=== PATIENT | female | born 2000 | race Hispanic/Latino ===

== ENCOUNTER 2020-01-24 20:06 | Inpatient (IN) ==
[2020-01-24] MEDS ORDERED: REGLAN PO ONE (20:27)
[2020-01-24] MEDS ORDERED: PEPCID PO ONE (20:27)
[2020-01-24] MEDS ORDERED: PEPCID IV PRN (20:27)
[2020-01-24] MEDS ORDERED: BRETHINE SUBQ PRN (20:27)
[2020-01-24] MEDS ORDERED: ZOFRAN IV PRN (20:27)
[2020-01-24] MEDS ORDERED: STADOL IV PRN ×3 (20:27)
[2020-01-24] MEDS ORDERED: TYLENOL PO PRN (20:27)
[2020-01-24] MEDS ORDERED: PEPCID PO PRN (20:27)
[2020-01-24] MEDS ORDERED: AMBIEN PO PRN (20:27)
[2020-01-24] MEDS ORDERED: KEFZOL 1 GM/D5W 1 GM/50 ML IVPB IV PRN (20:27)
[2020-01-24 21:32] LABS: BASO# 0.05 X1000 (0.0-0.2); BASO% 0.7 % (0.0-0.8); EOS# 0.08 X1000 (0.0-0.7); EOS% 1.1 % (0.0-10.0); HEMATOCRIT 34.6 % (37.0-47.0); HEMOGLOBIN 11.5 g/dL (12.0-16.0); IMM GRAN# 0.05 X1000 (0.0-0.04); IMM GRAN% 0.7 % (0.0-0.5); LYMPH# 1.62 X1000 (1.2-3.4); LYMPH% 21.5 % (20.5-51.1); MCH 28.2 PG (27-31); MCHC 33.2 g/dL (33-37); MCV 84.8 FL (81-99); MONO# 0.56 X1000 (0.11-0.59); MONO% 7.4 % (1.7-9.3); NEUT# 5.17 X1000 (1.4-6.5); NEUT% 68.6 % (42.2-75.2); PLT 145 X1000 (130-400); RBC 4.08 XMIL (4.2-5.4); RDW 13.9 % (11.5-14.5); WBC 7.53 X1000 (4.8-10.8)
[2020-01-24] MEDS: CYTOTEC VAG SCH (22:00)
[2020-01-24] MEDS: LR 1,000 ML IV ONE (22:05)
--- NOTE | 2020-01-24 22:37 | HISTORY AND PHYSICAL ---
CHIEF COMPLAINT: Here for induction. HISTORY OF PRESENT ILLNESS: A 19-year-old G1 at 38 weeks and zero days with A2 gestational diabetes and gestational thrombocytopenia, presents to labor and delivery for medical induction of labor. Gestational diabetes has been controlled on metformin 1000 mg p.o. b.i.d. She has been followed by [facility] this and delivery was recommended at 38 to 39 weeks. She desired to proceed with induction today. She is feeling irregular contractions. She denies any bleeding or leaking fluid. She endorses movement. She has received regular care this . She was a transfer of care at 21 weeks to our clinic from a clinic in [place]. On third trimester labs she had platelets of 148,000, which is consistent with gestational thrombocytopenia. Her GBS status is negative. We discussed the induction of labor, cervical ripening, risks and indications for , and she desires to proceed. Estimated due date 02/07/2020 by T1 ultrasound equal to the last menstrual period. OBSTETRIC HISTORY: G1 is the current . GYNECOLOGIC HISTORY: She denies any history of sexually transmitted infections. Menarche was at age 9. PAST MEDICAL HISTORY: Denies. SURGICAL HISTORY: Denies. SOCIAL HISTORY: She denies any tobacco, alcohol or drug use. FAMILY HISTORY: Denies. MEDICATIONS: Metformin 1000 mg p.o. b.i.d. ALLERGIES: No known drug allergies. REVIEW OF SYSTEMS: Negative except as mentioned in HPI. PHYSICAL EXAMINATION: VITAL SIGNS: Temperature 97.8 degrees, pulse 90, blood pressure 118/73, oxygen saturation 96% on room air, respiratory rate 18. heart tracing 150/moderate variability/positive accelerations/no decelerations. Tocometry: Irregular contractions. LABORATORY DATA: White blood cell count 7.5, hemoglobin 11.5, hematocrit 34.6, platelets 145,000. labs: Blood type O positive, antibody screen negative, HIV negative, hepatitis B negative. Gonorrhea, chlamydia and trichomonas negative. Hemoglobin electrophoresis within normal limits. Normal cell-free DNA. AFP negative for open neural tube defects. Rubella immune. RPR negative. Urinary drug screen negative. GBS negative. PHYSICAL EXAMINATION: GENERAL: The patient is awake, alert, in no acute distress. LUNGS: Clear to auscultation bilaterally. CARDIOVASCULAR: Regular rate and rhythm. ABDOMEN: Soft, gravid, nontender. PELVIS: On sterile vaginal exam, 1/50/-3, soft, midposition. DIAGNOSTIC DATA: Bedside ultrasound: Vertex presentation. ASSESSMENT AND PLAN: A 19-year-old 1 at 38 weeks and 0 days with A2 gestational diabetes and gestational thrombocytopenia, here for medical induction of labor. 1. Admit to labor and delivery. 2. Maternal/ status stable, category 1 tracing. 3. We will proceed with cervical ripening with Cytotec and plan for intravenous Pitocin once cervix is favorable. Discussed cervical exam and need for cervical ripening with patient. Also discussed increased risk of section and indications for section. She agrees to proceed. 4. GBS negative. 5. The patient may have epidural when she desires. 6. We will check blood sugar q.4 hours and hold metformin medication. 7. Estimated weight at [facility]aternal- Medicine on 01/23: 3261 g (53rd percentile). Anticipate vaginal delivery.
[2020-01-24 22:50] LABS: URINE SOURCE VOIDED
[2020-01-24 23:01] LABS: BILIRUBIN URINE NEGATIVE (NEGATIVE); BLOOD URINE SMALL (NEGATIVE); COLOR YELLOW; GLUCOSE URINE NEGATIVE (NEGATIVE); KETONE URINE 20 mg/dL (NEGATIVE); LEUKOCYTES URINE LARGE (NEGATIVE); NITRITE URINE NEGATIVE (NEGATIVE); PROTEIN URINE TRACE mg/dL (NEGATIVE); SP GRAVITY URINE 1.021; TURBIDITY URINE CLEAR (CLEAR); UROBILINOGEN URINE NORMAL (NORMAL)
[2020-01-25] MEDS: CYTOTEC VAG SCH ×2 (02:00→05:57)
[2020-01-25] MEDS: LR 1,000 ML IV ONE (02:03)
[2020-01-25 02:42] LABS: UR AMPHETAMINES QUAL NONE DETECTED (NONE DETECT); UR BARBITUATES QUAL NONE DETECTED (NONE DETECT); UR BENZODIAZEPIN QUAL NONE DETECTED (NONE DETECT); UR CANNABINOIDS QUAL NONE DETECTED (NONE DETECT); UR COCAINE QUAL NONE DETECTED (NONE DETECT); UR METHADONE QUAL NONE DETECTED (NONE DETECT); UR OPIATES QUAL NONE DETECTED (NONE DETECT); UR OXYCODONE QUAL NONE DETECTED (NONE DETECT); UR PCP QUAL NONE DETECTED (NONE DETECT)
[2020-01-25] MEDS: PITOCIN 30 UNITS/NS 30 UNIT/500 ML IV.SOLN IV SCH (09:53)
[2020-01-25] MEDS ORDERED: XYLOCAINE-MPF 1% INJ ONE (11:00)
[2020-01-25] MEDS ORDERED: MINERAL OIL TOP ONE (11:00)
[2020-01-25] MEDS ORDERED: FENTANYL-BUPIV-NS 500 MCG-0.125% 250 ML EPIDURAL PRN (11:07)
[2020-01-25] MEDS ORDERED: FENTANYL IV ONE ×2 (11:15→19:30)
[2020-01-25] MEDS ORDERED: NEO-SYNEPHRINE IV ONE (11:15)
[2020-01-25] MEDS ORDERED: SODIUM CHLORIDE 0.9% INJ ONE (11:15)
[2020-01-25] MEDS ORDERED: NAROPIN 0.2% INJ ONE ×2 (11:15→19:30)
[2020-01-25] MEDS ORDERED: LR 1,000 ML ONE ×2 (11:36→20:24)
[2020-01-25] MEDS ORDERED: NEO-SYNEPHRINE ONE (19:19)
[2020-01-25] MEDS ORDERED: SODIUM CHLORIDE 0.9% 0 ML ONE (19:20)
[2020-01-25] MEDS ORDERED: FENTANYL ONE (19:20)
[2020-01-25] MEDS ORDERED: NAROPIN 0.2% ONE (19:20)
[2020-01-26] MEDS: PITOCIN 30 UNITS/NS 30 UNIT/500 ML IV.SOLN IV SCH (03:16)
[2020-01-26] MEDS ORDERED: CYTOTEC PO PRN (04:09)
[2020-01-26] MEDS ORDERED: M-M-R II VACCINE SUBQ ONE (04:09)
[2020-01-26] MEDS ORDERED: BOOSTRIX VACCINE IM ONE (04:09)
[2020-01-26] MEDS ORDERED: PERI MEDS (DERMOPLAST/NUPERCAINAL/TUCKS) MISC PRN (04:09)
[2020-01-26] MEDS ORDERED: HYDROXYZINE IM PRN (04:09)
[2020-01-26] MEDS ORDERED: PITOCIN IM PRN (04:09)
[2020-01-26] MEDS ORDERED: PERCOCET-10 PO PRN (04:09)
[2020-01-26] MEDS ORDERED: PERCOCET-5 PO PRN (04:09)
[2020-01-26] MEDS ORDERED: BENADRYL PO PRN (04:09)
[2020-01-26] MEDS ORDERED: MINERAL OIL PO PRN (04:09)
[2020-01-26] MEDS ORDERED: ATARAX PO PRN (04:09)
[2020-01-26] MEDS ORDERED: AMBIEN PO PRN (04:09)
[2020-01-26] MEDS ORDERED: BENADRYL IV PRN (04:09)
[2020-01-26] MEDS ORDERED: PITOCIN 20 UNITS/NS 20 UNITS/1,000 ML IV.SOLN IV SCH (04:15)
[2020-01-26] MEDS ORDERED: PITOCIN 30 UNITS/NS 30 UNIT/500 ML IV.SOLN IV SCH (04:15)
[2020-01-26] MEDS: MOTRIN PO PRN ×2 (04:49→22:43)
--- NOTE | 2020-01-26 05:33 | OPERATIVE NOTE ---
DATE OF DELIVERY: 01/26/2020 HOUSEKEEPER/LAUNDRY ASSISTANT: Zeb Veliz MD. PROCEDURE: Normal spontaneous vaginal delivery. ESTIMATED BLOOD LOSS: 350 mL. ANESTHESIA: Epidural and local infiltrate. COMPLICATIONS: None. FINDINGS: OA presentation with left nuchal arm compound presentation. Second-degree laceration. PROCEDURE: The patient is a 19-year-old 1 at 38 and 2/7th weeks gestation. complicated by gestational diabetes A2, who presented to Labor and delivery for Cytotec induction of labor. She underwent amniotomy at approximately 2 cm and under epidural anesthesia, progressed normally through 1st and 2nd stage of labor. Second stage was approximately an hour and a half and delivered the head without difficulty or complication. A compound presentation was noted and the hand reduced and the shoulder anterior shoulder delivered with some manual rotation to NIKI. The remainder of the infant delivered without difficulty or complication. The was handed to the maternal abdomen. The cord was clamped x2 and cut and the cord blood was obtained from the placental cord. The placenta delivered intact with 3 vessel cord. Under gentle traction. The perineum was inspected and a second-degree laceration was noted. This was repaired in the usual fashion with 2-0 chromic. At end of procedure the perineum was intact and hemostatic.
[2020-01-26] MEDS: PERICOLACE PO SCH (22:43)
[2020-01-27 05:01] LABS: BASO# 0.04 X1000 (0.0-0.2); BASO% 0.5 % (0.0-0.8); EOS# 0.09 X1000 (0.0-0.7); EOS% 1.1 % (0.0-10.0); HEMOGLOBIN 8.7 g/dL (12.0-16.0); IMM GRAN# 0.03 X1000 (0.0-0.04); IMM GRAN% 0.4 % (0.0-0.5); LYMPH# 2.26 X1000 (1.2-3.4); LYMPH% 26.5 % (20.5-51.1); MCH 27.8 PG (27-31); MCHC 32.2 g/dL (33-37); MCV 86.3 FL (81-99); MONO# 0.54 X1000 (0.11-0.59); MONO% 6.3 % (1.7-9.3); MPV 12.5 FL (7.4-10.4); NEUT# 5.58 X1000 (1.4-6.5); NEUT% 65.2 % (42.2-75.2); PLT 139 X1000 (130-400); RBC 3.13 XMIL (4.2-5.4); WBC 8.54 X1000 (4.8-10.8)
[2020-01-27] MEDS: VITAMIN C PO SCH ×2 (09:55→23:41)
[2020-01-27] MEDS: FERROUS SULFATE PO SCH ×2 (09:55→23:41)
--- NOTE | 2020-01-27 10:02 | OB/GYN PROGRESS NOTE ---
- Subjective S: Patient without complaints. Denied of fever, chills, N/V, SOB or chest pain. Ambulating without difficulty. Voiding without difficulty. Pain controlled. Lochia light. . O: VS wnl Vital Signs - 24 hr 01/26/20 10:06 01/26/20 12:35 01/26/20 15:52 Temperature 96.9 F L 97 F L 98 F Pulse Rate 101 H 87 98 H Respiratory Rate 20 20 20 Blood Pressure 98/61 109/59 113/63 O2 Sat by Pulse Oximetry 100 100 100 01/26/20 22:46 01/27/20 04:00 01/27/20 08:00 Temperature 98.6 F 98.3 F 97 F L Pulse Rate 82 86 91 H Respiratory Rate 16 16 20 Blood Pressure 110/60 112/72 125/75 O2 Sat by Pulse Oximetry 100 100 100 Gen: NAD, AAO x3 CV: RRR Pulm: CTAB; no rhonchi, wheezing, or rales Abd: soft, non-tender to palpationl, non-distended; active bowel sounds Ext: no lower extremity TTP Labs: Laboratory Results - last 24 hr 01/26/20 01/27/20 10:46 04:53 WBC 8.54 RBC 3.13 L Hgb 8.7 L Hct 27.0 L MCV 86.3 MCH 27.8 MCHC 32.2 L RDW Std Deviation 14.0 Plt Count 139 MPV 12.5 H Immature Gran % (Auto) 0.4 Neut % (Auto) 65.2 Lymph % (Auto) 26.5 [place] % (Auto) 6.3 Eos % (Auto) 1.1 Baso % (Auto) 0.5 Immature Gran # (Auto) 0.03 Neut # (Auto) 5.58 Lymph # (Auto) 2.26 [place] # (Auto) 0.54 Eos # (Auto) 0.09 Baso # (Auto) 0.04 POC Glucose 120 H A&P: 19yo s/p at 38w2d, 1. PPD#1 -No concerns -Iron and Vitamin C BID started for acute blood loss anemia - precautions given 2. GDMA2 -2h GTT recommended ~6wks 3. Gestational thrombocytopenia -Consider repeat CBC ~4-6wks OB Physical Exam Vital Signs - 8 hr 01/27/20 04:00 01/27/20 08:00 Temperature 98.3 F 97 F L Pulse Rate 86 91 H Respiratory Rate 16 20 Blood Pressure 112/72 125/75 O2 Sat by Pulse Oximetry 100 100 - CONSTITUTIONAL General Appearance: appears well - RESPIRATORY Respiratory: lungs clear, normal breath sounds - CARDIOVASCULAR Cardiovascular: regular rate, rhythm - GASTROINTESTINAL (ABDOMEN) Abdominal Exam: normal bowel sounds, non tender Active Medications Generic Name Dose Route Start Last Admin Trade Name Freq PRN Reason Stop Dose Admin Acetaminophen 650 mg 01/24/20 20:27 Tylenol PO Q4-6H PRN PRN Headache Ascorbic Acid 500 mg 01/27/20 09:15 Vitamin C PO BID [facility] Benzocaine 1 each 01/26/20 04:09 01/26/20 04:51 Jacqueline Meds (Dermoplast/Nupercainal/Tucks) MISC 1 pkt 3-4XDAY PRN PRN Administration episiotomy/hemorrhoids Diphenhydramine HCl 12.5 mg 01/26/20 04:09 Benadryl IV Q4H PRN PRN Itching Diphenhydramine HCl 25 mg 01/26/20 04:09 Benadryl PO Q4H PRN PRN Itching Famotidine 20 mg 01/24/20 20:27 Pepcid PO Q12H PRN PRN GI upset or indigestion Ferrous Sulfate 325 mg 01/27/20 09:15 Ferrous Sulfate PO BID [facility] Hydroxyzine HCl 50 mg 01/26/20 04:09 Atarax PO Q3-4H PRN PRN Nausea Hydroxyzine HCl 50 mg 01/26/20 04:09 Hydroxyzine IM Q3-4H PRN PRN Nausea Oxytocin/Sodium Chloride 20 units in 1,000 mls @ 0 mls/hr 01/26/20 04:15 01/26/20 04:00 Pitocin 20 Units/Ns IV 125 mls/hr .Q0M [place] Administration As Directed Ibuprofen 800 mg 01/26/20 04:09 01/26/20 22:43 Motrin PO 800 mg Q8H PRN PRN Administration cramping Oxycodone/Acetaminophen 1 each 01/26/20 04:09 Percocet-5 PO Q3-4H PRN PRN Pain (1-6 on Pain Scale) Oxycodone/Acetaminophen 1 each 01/26/20 04:09 Percocet-10 PO Q3-4H PRN PRN Pain (7-10 on Pain Scale) Oxytocin 20 unit 01/26/20 04:09 Pitocin IM PRN PRN Severe bleeding Senna/Docusate Sodium 1 each 01/26/20 21:00 01/26/20 22:43 Pericolace PO 1 each QHS [place] Administration Zolpidem Tartrate 10 mg 01/26/20 04:09 Ambien PO HS PRN PRN Sleep Laboratory Results - last 24 hr 01/26/20 01/27/20 10:46 04:53 WBC 8.54 RBC 3.13 L Hgb 8.7 L Hct 27.0 L MCV 86.3 MCH 27.8 MCHC 32.2 L RDW Std Deviation 14.0 Plt Count 139 MPV 12.5 H Immature Gran % (Auto) 0.4 Neut % (Auto) 65.2 Lymph % (Auto) 26.5 [place] % (Auto) 6.3 Eos % (Auto) 1.1 Baso % (Auto) 0.5 Immature Gran # (Auto) 0.03 Neut # (Auto) 5.58 Lymph # (Auto) 2.26 [place] # (Auto) 0.54 Eos # (Auto) 0.09 Baso # (Auto) 0.04 POC Glucose 120 H OB Assessment & Plan (1) (spontaneous vaginal delivery) Status: Acute Plan: Continue routine care
[2020-01-27] MEDS: PRECARE PO SCH (10:34)
[2020-01-27] MEDS: PERICOLACE PO SCH (23:41)
[2020-01-28 08:48] VITALS: BP 121/80
[2020-01-28] MEDS: VITAMIN C PO SCH (09:07)
[2020-01-28] MEDS: FERROUS SULFATE PO SCH (09:07)
[2020-01-28] MEDS: PRECARE PO SCH (09:07)
[2020-01-28] MEDS: MOTRIN PO PRN (09:07)
== END 2020-01-28 10:10 | disposition home or self-care (01) | DRG 806 ==
LOC: LD 20:06
PROVIDERS: ADMIT Student in an Organized Health Care Education/Training Program; ATTEND Student in an Organized Health Care Education/Training Program